=== PATIENT | male | born 1945 | race Caucasian/White ===

== ENCOUNTER → 2017-01-13 | Outpatient (CLI) | payer OTHER ==
[~2017-01-13] MED LIST: HYDR-3533 PO; IBUP800T23 PO; METH500T3 PO; METH750T2 PO
[2017-01-13 08:11] LABS: ALKALINE PHOSPHATASE 144 U/L (45-117); ALT (GPT) 36 U/L (12-78); ANION GAP 6 MEQ/L (5-15); AST (GOT) 24 U/L (15-37); BICARBONATE 29.9 MEQ/L (21.0-32.0); BLOOD UREA NITROGEN 18 MG/DL (7-18); CHLORIDE 103 MEQ/L (98-107); GLOMERULAR FILTRATION RATE 59 ML/MIN (>89); GLUCOSE,FASTING 88 MG/DL (74-99); SODIUM (NA) 139 MEQ/L (136-145); TOTAL BILIRUBIN ADULT 0.6 MG/DL (0.2-1.0)
[2017-01-13 08:17] LABS: POTASSIUM 4.6 MEQ/L (3.5-5.1)
[2017-01-13 16:49] LABS: HEMOGLOBIN A1a 1.1 %; HEMOGLOBIN A1b 1.1 %; HEMOGLOBIN Ao 84.2 %; HEMOGLOBIN F 0.9 %; HEMOGLOBIN LA1C 1.8 %; HEMOGLOBIN P3 3.9 %
== END ==
LOC: CLAB 07:09
PROVIDERS: ATTEND Nurse Practitioner Family
DX: R97.8 Other abnormal tumor markers (principal); R73.01 Impaired fasting glucose
CPT/HCPCS: 36415; 80053; 83036; 84153

== ENCOUNTER → 2017-01-15 | Outpatient (CLI) | payer OTHER | LOC: CLAB 15:46 | PROVIDERS: ATTEND Orthopaedic Surgery | DX: M10.471 Other secondary gout, right ankle and foot (principal) | CPT/HCPCS: 36415; 84550 ==

== ENCOUNTER → 2017-07-15 | Outpatient (CLI) | payer OTHER ==
[2017-07-15 07:36] LABS: ALT (GPT) 29 U/L (12-78); ANION GAP 8 MEQ/L (5-15); AST (GOT) 20 U/L (15-37); BICARBONATE 28.2 MEQ/L (21.0-32.0); BLOOD UREA NITROGEN 20 MG/DL (7-18); CHLORIDE 106 MEQ/L (98-107); GLOMERULAR FILTRATION RATE 63 ML/MIN (>89); GLUCOSE,FASTING 91 MG/DL (74-99); SODIUM (NA) 142 MEQ/L (136-145); URIC ACID 7.3 MG/DL (2.6-7.2)
[2017-07-15 07:45] LABS: ALKALINE PHOSPHATASE 118 U/L (45-117); FREE T3 3.14 PG/ML (2.18-3.98); TOTAL BILIRUBIN ADULT 0.4 MG/DL (0.2-1.0)
[2017-07-15 17:58] LABS: HEMOGLOBIN A1a 1.1 %; HEMOGLOBIN A1b 1.1 %; HEMOGLOBIN Ao 83.8 %; HEMOGLOBIN LA1C 1.9 %; HEMOGLOBIN P3 4.1 %
== END ==
LOC: CLAB 06:46
PROVIDERS: ATTEND Nurse Practitioner Family
DX: R73.01 Impaired fasting glucose (principal); R97.8 Other abnormal tumor markers; R79.89 Other specified abnormal findings of blood chemistry; Z51.81 Encounter for therapeutic drug level monitoring; M10.9 Gout, unspecified
CPT/HCPCS: 36415; 80053; 83036; 84153; 84439; 84443; 84481; 84550

== ENCOUNTER 2017-11-07 08:54 | Emergency (ER) | payer OTHER ==
[~2017-11-07] VITALS: Ht 177.8 cm; Wt 75.0 kg
[~2017-11-07 08:54] MED LIST changes: +HYDR-3366 PO; +IBUP200C PO
[2017-11-07 08:57] VITALS: BP 174/87; PULSE 73; RESP 18; TEMP 98; O2SAT 100
[2017-11-07] MEDS ORDERED: KETOROLAC TROMETHAMINE 60 MG/2 ML (IM) VIAL IM ONE (09:45)
--- NOTE | 2017-11-07 10:29 | PD ---
HPI Chief Complaint: Back/ Neck Pain or Injury Time Seen by Provider: 09:17 Travel History International Travel<30 days: No Contact w/Intl Traveler<30days: No Traveled to known affect area: No History of Present Illness HPI This is a 72-year-old male who presents to the emergency department with low back pain radiating down to his right calf, intermittent, worse in the morning improved after he walks around some associated with some tingling in the leg. He has had pain like this in the past but not for over a year. He denies any urinary or bowel incontinence and denies any fevers or chills. He has no symptoms in the left leg. PFSH Past Medical History Hx Anticoagulant Therapy: No Cancer: No Cardiovascular Problems: No Chemotherapy: No Cerebrovascular Accident: No Diabetes: No Diminished Hearing: No Endocrine: No Glaucoma: No Headaches: Yes Hepatitis: No Hiatal Hernia: No Hypertension: No Immune Disorder: No Inguinal Hernia: Yes (RIGHT SIDE REPAIRED) Musculoskeletal: Yes (SCIATICA) Neurologic: No Respiratory: No Thyroid Disease: No PNEUMOCCOCAL Vaccine (Year): 2008 Past Surgical History Abdominal Surgery: Yes Appendectomy: Yes Genitourinary Surgery: Yes Oral Surgery: Yes Pacemaker: No Other Surgery: Yes (INGUINAL HERNIA REPAIR, URO SURGERY, FACIAL SURGERY) Social History Alcohol Use: No Tobacco Use: No Substance Use: No Allergies-Medications (Allergen,Severity, Reaction): Coded Allergies: No Known Allergies (Verified Adverse Reaction, Unknown, 11/07/17) Reported Meds & Prescriptions Reported Meds & Active Scripts Active No Active Prescriptions or Reported Medications Review of Systems Except as stated in HPI: all other systems reviewed are Neg Physical Exam Narrative GENERAL:Well appearing, no acute distress SKIN: Focused skin assessment warm and dry. HEAD: Atraumatic. Normocephalic. EYES: Pupils equal and round. No injection or drainage. ENT: Moist mucous membranes NECK: Trachea midline. CARDIOVASCULAR: Regular rate and rhythm. No murmur appreciated. 2+ bilateral DP pulses with normal capillary refill. RESPIRATORY: Clear to auscultation. Breath sounds equal bilaterally. GASTROINTESTINAL: Abdomen soft, non-tender, nondistended. MUSCULOSKELETAL: Tender to palpation over the upper lumbar vertebral bodies with pain with ipsilateral straight leg raise. NEUROLOGICAL: Awake and alert. No obvious cranial nerve deficits. Moving all extremities. 5 out of 5 strength in the bilateral lower extremities. Sensation is grossly intact in both lower extremities. PSYCHIATRIC: Appropriate mood and affect; insight and judgment normal. Data Data Last Documented VS Vital Signs Date Time Temp Pulse Resp B/P (MAP) Pulse Ox O2 Delivery O2 Flow Rate FiO2 11/07/17 10:55 54 14 150/77 (101) 98 Room Air 11/07/17 08:57 98.0 Orders Orders Spine, Lumbar - Ltd (Ap & Lat) (11/07/17 ) Ketorolac Inj (Toradol Inj) (11/07/17 09:45) MDM Medical Decision Making Medical Screen Exam Complete: Yes Emergency Medical Condition: Yes Interpretation(s) Afebrile, no tachycardia, hypertensive X-ray: Osteopenia with no compression fracture Differential Diagnosis Compression fracture, herniated disc, sciatica, cauda equina syndrome Narrative Course This is a 72-year-old male who presents to the emergency department with radicular pain starting in his low back extending down to his calf. He has a normal neurovascular symptoms with no red flags for cauda equina syndrome. Patient was given an injection of Toradol here in the emergency department. He will be discharged with prednisone and tramadol and will be excused from work for several days in order to recover. He was advised this may take 6-8 weeks to recover and he was advised to follow-up with his doctor in 1-2 weeks if he is not improving for potential physical therapy or further imaging. Diagnosis Primary Impression: Lumbosacral radiculopathy Patient Instructions: General Instructions Additional Instructions: If you develop weakness of your legs, difficulty walking, numbness of your legs or your genital or rectal area, loss of your bowel or bladder, or difficulty urinating return to the emergency department immediately. Followup with your primary care physician in one week if your symptoms have not improved. Med/Other Pt SpecificInfo: Prescription(s) given Scripts Ranitidine (Ranitidine) 150 Mg Tab 150 MG PO BID for Heartburn Management, #60 TAB 0 Refills Prov: Adelaida Snowden MD 11/07/17 Prednisone (48) 10 mg tab Dose Pack (Prednisone (48) 10 mg tab Dose Pack) 10 Mg Dspk 10 MG PO DIRECTED for Inflammation, #1 DSPK 0 Refills Prov: Adelaida Snowden MD 11/07/17 Tramadol (Tramadol) 50 Mg Tab 50 MG PO Q6H Y for PAIN, #12 TAB 0 Refills Prov: Adelaida Snowden MD 11/07/17 Disposition: 01 DISCHARGE HOME Condition: Stable Adelaida Snowden MD Nov 07, 2017 10:29
--- NOTE | 2017-11-07 10:47 | RADRPT ---
EXAM DATE/TIME: 11/07/2017 09:51 [facility] COMPARISON: SPINE LUMBAR LTD (AP & LAT), December 24, 2014, 7:58. INDICATIONS : Low back pain radiating into left leg. MEDICAL HISTORY : None. SURGICAL HISTORY : None. ENCOUNTER: Initial ACUITY: 2 days PAIN SCORE: 10/10 LOCATION: Left lumbar spine. FINDINGS: Two view examination was performed. There are five non-rib bearing vertebral bodies. The vertebral bodies are in normal alignment without evidence of subluxation or scoliosis. The disc spaces are bee ntained. The pedicles are intact. Osteopenia. Minimal degenerative changes. No fracture is identifi ed. CONCLUSION: 1. Minimal degenerative changes and osteopenia. Asad Babin MD on November 07, 2017 at 10:44 Board Certified Radiologist. This report was verified electronically.
[2017-11-07 10:55] VITALS: BP 150/77; PULSE 54; RESP 14; O2SAT 98
[2017-11-07] MEDS ORDERED: PRED10PA2 PO (11:06)
[2017-11-07] MEDS ORDERED: RANI150T PO (11:06)
[2017-11-07] MEDS ORDERED: TRAM50TA PO (11:06)
== END 2017-11-07 11:26 | disposition home or self-care (01) ==
LOC: NEPD 08:54
DX: M54.17 Radiculopathy, lumbosacral region (principal)
CPT/HCPCS: 72100; 96372; 99283; J1885

== ENCOUNTER 2017-12-14 15:56 | Emergency (ER) | payer OTHER ==
[~2017-12-14] VITALS: Ht 175.3 cm; Wt 75.0 kg
[~2017-12-14 15:56] MED LIST changes: -HYDR-3533 PO; -IBUP800T23 PO; -METH500T3 PO; -METH750T2 PO; +PRED10PA2 PO; +RANI150T PO; +TRAM50TA PO
[2017-12-14 15:59] VITALS: BP 185/92; PULSE 87; RESP 16; TEMP 98.5; O2SAT 100
[2017-12-14] MEDS ORDERED: PRED20 PO (20:00)
[2017-12-14] MEDS ORDERED: DEXAMETHASONE SOD PHOS 4 MG/ML VIAL IM ONE (20:00)
[2017-12-14] MEDS ORDERED: KETOROLAC TROMETHAMINE 60 MG/2 ML (IM) VIAL IM ONE (20:00)
[2017-12-14] MEDS ORDERED: ZANT300T PO (20:00)
[2017-12-14] MEDS ORDERED: NORC5TAB PO (20:00)
--- NOTE | 2017-12-14 20:00 | PD ---
HPI Chief Complaint: Back/ Neck Pain or Injury Time Seen by Provider: 19:40 Travel History International Travel<30 days: No Contact w/Intl Traveler<30days: No Traveled to known affect area: No History of Present Illness HPI 72-year-old male complains of low back pain and right leg pain. Patient states that the pain started a month and a half ago. Patient was seen in the emergency room a month ago. Lumbar spine x-ray shows DJD changes. Patient was given Toradol IM injection and discharged with prescription for prednisone, Zantac, tramadol. Patient was seen by personal physician Dr. Tafoya recently. Patient had MRI done 2 weeks ago outpatient which showed DJD changes and disc disease. Patient was given prescription for tramadol for pain. Patient states that the pain got worse for the past several days. Patient states that the pain sharp pain shooting pain started in the low back with radiation to the posterior aspect of the right leg. Patient denies any focal weakness or numbness of the extremity. Patient denies any bladder or bowel incontinence. Patient denies any fever chills. Patient denies any focal weakness or numbness of the extremity. PFSH Past Medical History Hx Anticoagulant Therapy: No Cancer: No Cardiovascular Problems: No Chemotherapy: No Cerebrovascular Accident: No Diabetes: No Diminished Hearing: No Endocrine: No Glaucoma: No Headaches: Yes Hepatitis: No Hiatal Hernia: No Hypertension: No Immune Disorder: No Inguinal Hernia: Yes (RIGHT SIDE REPAIRED) Musculoskeletal: Yes (SCIATICA) Neurologic: No Respiratory: No Thyroid Disease: No PNEUMOCCOCAL Vaccine (Year): 2008 Past Surgical History Abdominal Surgery: Yes Appendectomy: Yes Genitourinary Surgery: Yes Oral Surgery: Yes Pacemaker: No Other Surgery: Yes (INGUINAL HERNIA REPAIR, URO SURGERY, FACIAL SURGERY) Social History Alcohol Use: No Tobacco Use: No Substance Use: No Allergies-Medications (Allergen,Severity, Reaction): Coded Allergies: No Known Allergies (Verified Adverse Reaction, Unknown, 11/07/17) Reported Meds & Prescriptions Reported Meds & Active Scripts Active Ranitidine (Ranitidine HCl) 150 Mg Tab 150 Mg PO BID Prednisone (48) 10 mg tab Dose Pack (Prednisone) 10 Mg Dspk 10 Mg PO DIRECTED Tramadol (Tramadol HCl) 50 Mg Tab 50 Mg PO Q6H PRN [place] (Hydrocodone-Acetaminophen) 10-325 Mg Tab 1 Tab PO Q6H PRN Reported Ibuprofen 200 Mg Cap 200 Mg PO Q6H PRN Review of Systems General / Constitutional: No: Fever Eyes: No: Visual changes HENT: No: Headaches Cardiovascular: No: Chest Pain or Discomfort Respiratory: No: Shortness of Breath Gastrointestinal: No: Abdominal Pain Genitourinary: No: Dysuria Musculoskeletal: Positive: Pain Skin: No Rash Neurologic: No: Weakness Psychiatric: No: Depression Endocrine: No: Polydipsia Hematologic/Lymphatic: No: Easy Bruising Physical Exam Narrative GENERAL: Well-nourished, well-developed patient. SKIN: Focused skin assessment warm/dry. HEAD: Normocephalic. EYES: No scleral icterus. No injection or drainage. NECK: Supple, trachea midline. No JVD or lymphadenopathy. CARDIOVASCULAR: Regular rate and rhythm without murmurs, gallops, or rubs. RESPIRATORY: Breath sounds equal bilaterally. No accessory muscle use. GASTROINTESTINAL: Abdomen soft, non-tender, nondistended. MUSCULOSKELETAL: Patient has positive straight leg raising right leg. BACK: Moderate tenderness on palpation mid to low lumbar area, without obvious deformity. No CVA tenderness. Neurologic exam: Patient awake and alert oriented 3. Patient moves all extremity well. No obvious focal neurologic deficit. Data Data Last Documented VS Vital Signs Date Time Temp Pulse Resp B/P (MAP) Pulse Ox O2 Delivery O2 Flow Rate FiO2 12/14/17 15:59 98.5 87 16 185/92 (123) 100 Orders Orders Dexamethasone Inj (Decadron Inj) (12/14/17 20:00) Ketorolac Inj (Toradol Inj) (12/14/17 20:00) MDM Medical Decision Making Medical Screen Exam Complete: Yes Emergency Medical Condition: Yes Differential Diagnosis Differential diagnosis includes sciatica, radiculopathy, HNP. Narrative Course 72-year-old male with low back pain with radiation to right leg. Typical of sciatica. Decadron 8 mg IM. Toradol 30 mg IM. Diagnosis Primary Impression: Right sided sciatica Patient Instructions: General Instructions Additional Instructions: Take medications as directed. Follow-up with orthopedist. Return if worse. Patient off work for next 2 days. Light duty for 2 weeks. Med/Other Pt SpecificInfo: Prescription(s) given Scripts Hydrocodone-Acetaminophen ([place]) 5 Mg-325 Mg Tab 1 TAB PO Q6H Y for PAIN, #20 TAB 0 Refills Prov: Jose Angel Foster MD 12/14/17 Prednisone (Prednisone) 20 Mg Tab 20 MG PO BID, #20 TAB 0 Refills Prov: Jose Angel Foster MD 12/14/17 Ranitidine (Zantac) 300 Mg Tab 300 MG PO DAILY, #30 TAB 0 Refills Prov: Jose Angel Foster MD 12/14/17 Disposition: 01 DISCHARGE HOME Condition: Stable Jose Angel Foster MD Dec 14, 2017 20:00
[2017-12-14 20:04] VITALS: BP 172/87; PULSE 67; RESP 18; O2SAT 98
== END 2017-12-14 20:36 | disposition home or self-care (01) ==
LOC: NEPD 15:56
DX: M54.41 Lumbago with sciatica, right side (principal)
CPT/HCPCS: 96372; 99283; J1100; J1885

== ENCOUNTER 2018-03-05 06:35 | Emergency (ER) | payer OTHER ==
[~2018-03-05] VITALS: Ht 175.3 cm; Wt 78.0 kg
[~2018-03-05 06:35] MED LIST changes: +NORC5TAB PO; +PRED20 PO; +ZANT300T PO
[2018-03-05 06:38] VITALS: BP 148/85; PULSE 69; RESP 16; TEMP 97.6; O2SAT 98
[2018-03-05] MEDS ORDERED: PENI500T PO (06:50)
--- NOTE | 2018-03-05 06:50 | PD ---
HPI Chief Complaint: Oral / Dental Pain or Problem Time Seen by Provider: 06:47 Travel History International Travel<30 days: No Contact w/Intl Traveler<30days: No Traveled to known affect area: No History of Present Illness HPI Patient is a 72-year-old male presenting to the emergency department for evaluation of erythema to his gums over the upper central incisors. Patient states he noticed it a week ago, he denies any pain, drainage, toothache. Patient states he does not have a dentist. He has no other complaints at this time. Symptom onset was gradual, symptoms are mild in nature. Patient's vital signs are stable, he denies any significant past medical history. PFSH Past Medical History Medical History: Denies Significant Hx Hx Anticoagulant Therapy: No Headaches: Yes Inguinal Hernia: Yes (RIGHT SIDE REPAIRED) Musculoskeletal: Yes (SCIATICA) Tetanus Vaccination: Unknown Influenza Vaccination: Yes PNEUMOCCOCAL Vaccine (Year): 2008 Past Surgical History Abdominal Surgery: Yes Appendectomy: Yes Genitourinary Surgery: Yes Oral Surgery: Yes Pacemaker: No Other Surgery: Yes (INGUINAL HERNIA REPAIR, URO SURGERY, FACIAL SURGERY) Social History Alcohol Use: No Tobacco Use: No Substance Use: No Allergies-Medications (Allergen,Severity, Reaction): Coded Allergies: No Known Allergies (Verified Adverse Reaction, Unknown, 11/07/17) Reported Meds & Prescriptions Reported Meds & Active Scripts Active Penicillin V Potassium 500 Mg Tab 500 Mg PO Q8H 7 Days [place] (Hydrocodone-Acetaminophen) 5 Mg-325 Mg Tab 1 Tab PO Q6H PRN Prednisone 20 Mg Tab 20 Mg PO BID Zantac (Ranitidine HCl) 300 Mg Tab 300 Mg PO DAILY Ranitidine (Ranitidine HCl) 150 Mg Tab 150 Mg PO BID Prednisone (48) 10 mg tab Dose Pack (Prednisone) 10 Mg Dspk 10 Mg PO DIRECTED Tramadol (Tramadol HCl) 50 Mg Tab 50 Mg PO Q6H PRN [place] (Hydrocodone-Acetaminophen) 10-325 Mg Tab 1 Tab PO Q6H PRN Reported Ibuprofen 200 Mg Cap 200 Mg PO Q6H PRN Review of Systems Except as stated in HPI: all other systems reviewed are Neg HENT: Positive: Dental Difficulties Physical Exam Narrative GENERAL: Well-developed, well-nourished, well-appearing male. Presenting in no acute distress. MOUTH: Mucous membranes moist, no lesions, tongue appears normal. Gums over the upper central incisors appear mildly erythematous and edematous. No fluctuance or dental caries noted. SKIN: Warm and dry. HEAD: Normocephalic. EYES: No scleral icterus. No injection or drainage. NECK: Supple, trachea midline. No JVD or lymphadenopathy. CARDIOVASCULAR: Regular rate and rhythm without murmurs, gallops, or rubs. RESPIRATORY: Breath sounds equal bilaterally. No accessory muscle use. GASTROINTESTINAL: Abdomen soft, non-tender, nondistended. MUSCULOSKELETAL: No cyanosis, or edema. BACK: Nontender without obvious deformity. No CVA tenderness. Data Data Last Documented VS Vital Signs Date Time Temp Pulse Resp B/P (MAP) Pulse Ox O2 Delivery O2 Flow Rate FiO2 03/05/18 06:38 97.6 69 16 148/85 (106) 98 Orders Orders Ed Discharge Order (03/05/18 06:50) MDM Medical Decision Making Medical Screen Exam Complete: Yes Emergency Medical Condition: Yes Interpretation(s) Vital Signs Date Time Temp Pulse Resp B/P (MAP) Pulse Ox O2 Delivery O2 Flow Rate FiO2 03/05/18 06:38 97.6 69 16 148/85 (106) 98 Differential Diagnosis Abscess versus gingivitis versus dental caries versus other Narrative Course Patient is a 72-year-old male presenting with 1 week of gingival edema. Patient 's vital signs are stable. There is no sign of abscess. Patient was given a prescription for Pen-Vee K. He was encouraged to follow-up with a dentist. He was given a list of local dental clinics in which to follow-up with. He was encouraged to brush teeth regularly. He is encouraged return to emergency department for any new or worsening symptoms. Patient verbalized understanding. Patient stable for discharge Diagnosis Primary Impression: Gingival erythema Referrals: Dentist 2 days Patient Instructions: General Instructions, Gingivitis (ED) Additional Instructions: Follow-up with a dentist [place] your teeth regularly Take medications as directed Return to emergency department for any new or worsening symptoms Med/Other Pt SpecificInfo: Prescription(s) given Scripts Penicillin V Potassium (Penicillin V Potassium) 500 Mg Tab 500 MG PO Q8H for Infection for 7 Days, #21 TAB 0 Refills Prov: Marisabel Campos 03/05/18 Disposition: 01 DISCHARGE HOME Condition: Stable Marisabel Campos March 05, 2018 06:50
== END 2018-03-05 07:03 | disposition home or self-care (01) ==
LOC: NEPD 06:35
DX: K06.8 Other specified disorders of gingiva and edentulous alveolar ridge (principal)
CPT/HCPCS: 99283

== ENCOUNTER 2018-04-10 22:19 | Observation (INO) ==
[2018-04-10] MEDS ORDERED: Sodium Chlor 0.9% Inj 500 ML IV.SIG ONE (23:00)
--- NOTE | 2018-04-10 23:40 | XR ---
EXAM DATE: 04/10/2018 11:20 PM EDT AGE/SEX: 72 years / Male INDICATIONS: Weakness, cough. CLINICAL DATA: This is the patient's initial encounter. Patient reports that signs and symptoms have been present for 2 days and indicates a pain score of 0/10. MEDICAL/SURGICAL HISTORY: None. None. COMPARISON: No prior exams available for comparison. FINDINGS: Single AP view of the chest. Lungs are clear. Cardiomediastinal silhouette within normal limits. No e vidence of pleural effusion or pneumothorax. CONCLUSION: No acute cardiopulmonary disease identified. Electronically signed by: Tyrone Nuñez MD 04/10/2018 11:39 PM EDT
[2018-04-10 23:48] LABS: Baso # (Auto) 0.1 th/mm3 (0.0-0.2); Eos % (Auto) 0.6 % (0.0-4.0); Hematocrit 42.6 % (39.0-51.0); Hemoglobin 14.2 gm/dL (13.0-17.0); Lymph # (Auto) 1.4 th/mm3 (1.0-4.8); Lymph % (Auto) 19.4 % (9.0-44.0); Mean Corpuscular HGB Conc 33.3 % (32.0-36.0); Mean Corpuscular Hemoglobin 30.9 pg (27.0-34.0); Mean Corpuscular Volume 92.8 fL (80.0-100.0); Mean Platelet Volume 7.7 fL (7.0-11.0); Mono # (Auto) 0.6 th/mm3 (0.0-0.9); Mono % (Auto) 8.6 % (0.0-8.0); Neut # (Auto) 5.3 th/mm3 (1.8-7.7); Neut % (Auto) 70.4 % (16.0-70.0); Platelet Count 271 th/mm3 (150-450); Red Blood Count 4.59 mil/mm3 (4.50-5.90); Red Cell Distribution Width 12.6 % (11.6-17.2); White Blood Count 7.4 th/mm3 (4.0-11.0)
[2018-04-11 00:05] LABS: Chloride 107 meq/L (98-107); Sodium 141 meq/L (136-145)
[2018-04-11 00:08] LABS: Calcium 8.6 mg/dL (8.5-10.1)
[2018-04-11 00:09] LABS: Albumin 3.6 g/dL (3.4-5.0); Anion Gap 9 meq/L (5-15); Blood Urea Nitrogen 26 mg/dL (7-18); Carbon Dioxide 24.6 meq/L (21.0-32.0); Glucose,Random 110 mg/dL (74-106)
[2018-04-11 00:10] LABS: Activated Partial Thrombo Time 26.5 sec (24.3-30.1); INR 1.1 Ratio; Prothrombin Time 10.7 sec (9.8-11.6)
[2018-04-11 00:12] LABS: Alanine Aminotransferase 32 U/L (12-78); Aspartate Aminotransferase 24 U/L (15-37); Glomerular Filtration Rate 66 mL/min (>89)
[2018-04-11 00:15] LABS: Alkaline Phosphatase 112 U/L (45-117); Creatine Kinase 266 U/L (39-308)
[2018-04-11 00:29] LABS: Creatine Kinase MB 5.3 ng/mL (0.5-3.6)
--- NOTE | 2018-04-11 00:45 | ED ---
HPI General Chief complaint: Weakness Stated complaint: Weakness Time Seen by Provider: 04/10/18 22:53 Source: patient Mode of arrival: ambulatory Limitations: no limitations History of Present Illness HPI narrative: Patient is a 72 year old male who comes in complaining of several near syncopal episodes. He says that over the past two days, he has had about 5 episodes, 3 today. He says he gets very sweaty and feels like he is going to pass out. Each time, he has to sit down. He says he has been getting a headache on and off. He denies chest pain or SOB. He denies blurred vision, nausea or vomiting. Nothing seems to improve or worsen his symptoms. Severity is mild to moderate. Treatments prior to arrival: none Related Data Home Medications Medication Instructions Recorded Confirmed No Known Home Medications 04/10/18 04/10/18 Allergies Allergy/AdvReac Type Severity Reaction Status Date / Time No Known Allergies AdvReac Unknown Abdominal Uncoded 04/10/18 23:54 Pain Review of Systems Except as stated in HPI: all other systems reviewed are negative Constitutional Denies chills, Denies fever(s) and Reports headache(s) Eyes Denies blurry vision ENT Reports dizziness Cardiovascular Denies chest pain and Denies dyspnea Gastrointestinal Denies nausea and Denies vomiting Musculoskeletal Denies myalgias and Denies arthralgias Neurologic Denies focal weakness [facility] Medical History Medical History Inguinal hernia (Acute) Patient denies medical problems (Acute) Social History Social History Substance History: No History of Abuse Second Hand Smoke Exposure: No Smoking Status: Never smoker How Often Do You Have a Drink Containing Alcohol: Never Recent Travel in [facility] within the Last 8 Weeks: No Recent Out of Country Travel within the Last 8 Weeks: No Immunization History Tetanus Immunization: Unsure Hx Influenza Vaccine This Season: Yes Exam Narrative Exam Narrative: GENERAL: Awake and alert, in no acute distress. SKIN: Focused skin assessment warm/dry. No wounds or signs of infection. HEAD: Atraumatic. Normocephalic. EYES: Pupils equal and round and reactive. No scleral icterus. EOMI. ENT: Mucous membranes pink and moist. NECK: Trachea midline. No JVD. CARDIOVASCULAR: Regular rate and rhythm. No murmur appreciated. RESPIRATORY: No accessory muscle use. Clear to auscultation. Breath sounds equal bilaterally. GASTROINTESTINAL: Abdomen soft, non-tender, nondistended. MUSCULOSKELETAL: No obvious deformities. No clubbing. No cyanosis. No edema. NEUROLOGICAL: Awake and alert. No obvious cranial nerve deficits. Motor grossly within normal limits. Normal speech. PSYCHIATRIC: Appropriate mood and affect; insight and judgment normal. Course Hospital Course: IV established, labs sent CT head and CXR ordered. Given IVF, Meclizine. Reevaluation(s) Reevaluation #1: Patient is feeling better after IVF. He is concerned that he has had multiple episodes of near syncope. He is agreeable for an observation stay. Time: 00:39 Initial Documented Vital Signs Temperature 98.1 F 04/10/18 22:43 Pulse Rate 76 04/10/18 22:43 Respiratory Rate 20 04/10/18 22:43 Blood Pressure 154/84 H 04/10/18 22:43 Pulse Oximetry 97 04/10/18 22:43 Last Documented Vital Signs Temperature 98.1 F 04/10/18 22:49 Pulse Rate 66 04/10/18 23:56 Respiratory Rate 16 04/10/18 23:56 Blood Pressure 128/72 04/10/18 23:56 Pulse Oximetry 96 04/10/18 23:56 Medical Decision Making MDM Narrative Medical decision making narrative: Patient is a 72-year-old male who comes in complaining of several near syncopal episodes. Exam shows no neurologic abnormalities. IV established, labs sent. Labs show evidence of dehydration with an elevated BUN of 26 and a creatinine of 1.1. Patient given IV fluids, meclizine. He says his headache improved after treatment. Patient will be placed in observation for syncopal workup. Differential Diagnosis Differential Diagnosis: Dehydration versus electrolyte abnormality versus ACS versus dysrhythmia Medical Records Medical records reviewed: Yes I reviewed the patient's medical records. Lab Data Lab results reviewed: Yes I reviewed the patient's lab results. Result diagrams: 04/10/18 23:20 04/10/18 23:20 Lab Results 04/10/18 04/10/18 04/10/18 Range/Units 23:20 23:20 23:20 CBC w Diff Auto diff final WBC 7.4 (4.0-11.0) th/mm3 RBC 4.59 (4.50-5.90) mil/mm3 Hgb 14.2 (13.0-17.0) gm/dL Hct 42.6 (39.0-51.0) % MCV 92.8 (80.0-100.0) fL MCH 30.9 (27.0-34.0) pg MCHC 33.3 (32.0-36.0) % RDW 12.6 (11.6-17.2) % Plt Count 271 (150-450) th/mm3 MPV 7.7 (7.0-11.0) fL Neut % (Auto) 70.4 H (16.0-70.0) % Lymph % (Auto) 19.4 (9.0-44.0) % [place] % (Auto) 8.6 H (0.0-8.0) % Eos % (Auto) 0.6 (0.0-4.0) % Baso % (Auto) 1.0 (0.0-2.0) % Neut # (Auto) 5.3 (1.8-7.7) th/mm3 Lymph # (Auto) 1.4 (1.0-4.8) th/mm3 [place] # (Auto) 0.6 (0.0-0.9) th/mm3 Eos # (Auto) 0.0 (0.0-0.4) th/mm3 Baso # (Auto) 0.1 (0.0-0.2) th/mm3 WBC Differential . Differential Comment . PT 10.7 (9.8-11.6) sec INR 1.1 Ratio APTT 26.5 (24.3-30.1) sec Sodium 141 (136-145) meq/L Potassium 4.0 (3.5-5.1) meq/L Chloride 107 (98-107) meq/L Carbon Dioxide 24.6 (21.0-32.0) meq/L Anion Gap 9 (5-15) meq/L BUN 26 H (7-18) mg/dL Creatinine 1.10 (0.60-1.30) mg/dL Estimated GFR 66 L (>89) mL/min Random Glucose 110 H (74-106) mg/dL Calcium 8.6 (8.5-10.1) mg/dL Total Bilirubin 0.3 (0.2-1.0) mg/dL AST 24 (15-37) U/L ALT 32 (12-78) U/L Alkaline Phosphatase 112 (45-117) U/L Total Creatine Kinase 266 (39-308) U/L CK-MB (CK-2) 5.3 H (0.5-3.6) ng/mL Troponin I Less than 0.02 L (0.02-0.05) ng/mL Total Protein 7.0 (6.4-8.2) g/dL Albumin 3.6 (3.4-5.0) g/dL Imaging Data Radiologist's impression: ITS Impressions Chest X-Ray 04/10/18 23:02 CONCLUSION: No acute cardiopulmonary disease identified. ECG Data EKG Prior to Arrival: No Attestation: I personally reviewed and interpreted this ECG as follows: Interpretation: ECG shows normal sinus rhythm at a rate of 76, no ST elevation or depression, normal intervals. Discharge Plan Discharge Disposition Patient Disposition: 30 Still Patient Discharge Details Discharge Problem: Near syncope Physicians Team ED Provider: Sirena Calvillo Primary Care Provider: Isidoro Tafoya Attending Provider: Klaudia Stratton Discharge Interventions Interventions: Vital Signs Last Done: 04/10/18 23:56 Status ED Status: Admitted Observation Patient
--- NOTE | 2018-04-11 00:54 | CT ---
EXAM DATE: 04/10/2018 11:47 PM EDT AGE/SEX: 72 years / Male INDICATIONS: Dizziness. CLINICAL DATA: This is the patient's initial encounter. Patient reports that signs and symptoms have been present for 1 day and indicates a pain score of 0/10. MEDICAL/SURGICAL HISTORY: None. None. RADIATION DOSE: 62.10 CTDI (mGy) COMPARISON: No prior exams available for comparison. TECHNIQUE: CT of the head without contrast. Using automated exposure control and adjustment of the mA and/or kV according to patient size, radiation dose was kept as low as reasonably achievable to ob tain optimal diagnostic quality images. DICOM format image data is available electronically for revi ew and comparison. FINDINGS: Cerebrum: The ventricles are normal for age. No evidence of midline shift, mass lesion, hemorrhage or acute infarction. No extraaxial fluid collections are seen. Bilateral periventricular white matte r hypodensity likely representing chronic small vessel ischemic change. Posterior Fossa: The cerebellum and brainstem are intact. The 4th ventricle is midline. The cerebe llopontine angle is unremarkable. Extracranial: The visualized portion of the orbits is intact. Skull: The calvaria is intact. No evidence of skull fracture. CONCLUSION: 1. No acute intracranial findings identified. 2. Symmetric periventricular white matter hypodensity likely representing chronic small vessel ische riley change. Electronically signed by: Tyrone Nñuez MD 04/11/2018 12:52 AM EDT
[2018-04-11] MEDS ORDERED: Sod Chloride 0.9% Inj 1,000 ML IV.CONT SCH (01:00)
--- NOTE | 2018-04-11 07:46 | US ---
EXAM DATE: 04/11/2018 7:32 AM EDT AGE/SEX: 72 years / Male INDICATIONS: Syncope. CLINICAL DATA: This is the patient's initial encounter. Patient reports that signs and symptoms have been present for 2 days and indicates a pain score of 3/10. MEDICAL/SURGICAL HISTORY: . Inguinal hernia. None. COMPARISON: No prior exams available for comparison. VELOCITY PARAMETERS: ICA/CCA Ratio: Right 0.7 , Left 1.0 ICA: Right 73 cm/sec, Left 87 cm/sec CCA: Right 103 cm/sec, Left 89 cm/sec ECA: Right 102 cm/sec, Left 102 cm/sec Vertebral: Right 32 cm/sec antegrade, Left 37 cm/sec antegrade FINDINGS: Right Carotid: No significant plaque is visualized.The waveforms are within normal limits. Left Carotid: No significant plaque is visualized. The waveforms are within normal limits. Other: None. CONCLUSION: No hemodynamically significant stenosis in either carotid artery Electronically signed by: Asad Babin MD 04/11/2018 7:44 AM EDT
[2018-04-11 08:44] LABS: Potassium 3.9 meq/L (3.5-5.1)
[2018-04-11 08:46] LABS: Calcium 8.3 mg/dL (8.5-10.1)
[2018-04-11 08:47] LABS: Carbon Dioxide 25.6 meq/L (21.0-32.0)
--- NOTE | 2018-04-11 10:24 | ECG ---
Date Performed: 04/10/2018 Time Performed: 22:32:48 PTAGE: 72 years EKG: Sinus rhythm BORDERLINE LEFT AXIS DEVIATION BORDERLINE ECG PREVIOUS TRACING : 04/22/2013 09.51 No significant change from previous tracing noted. DOCTOR: Franki Watkins Interpretating Date/Time 04/11/2018 10:23:10
--- NOTE | 2018-04-11 11:47 | P.HP ---
History of Present Illness Primary Care Physician: Isidoro Tafoya MD Chief Complaint: Near syncope History of Present Illness: 72-year-old male with no chronic medical illnesses who presented to the hospital because lightheadedness, dizziness, near syncope. Patient states that he was normal state of health until approximately 2 days ago he started developing lightheadedness and dizziness where he felt as if he may pass out. This happened multiple times during the day yesterday and the day before. Because of those reasons he came to emergency department for evaluation. The patient indicates that he had had this same symptoms a couple years ago when he went to visit his family in [facility]. The patient was at work yesterday whenever he was working and the symptoms mainly happen whenever he goes from a sitting to standing, working while bending over. He did get lightheaded, dizzy and feel his face gets flushed. He did not have any episodes of syncope, denies any chest pain, shortness of breath, abdominal pain, nausea, vomiting. Upon workup emergency department does appears patient does have prerenal azotemia, possible some mild dehydration. Vital signs did indicate orthostasis. CT scan of the head was unremarkable, EKG showed sinus rhythm, it was recommended by the ER physician that the patient be observed in the hospital for further evaluation and management. - Diagnosis (1) Near syncope Inpatient Certification: I certify that the inpatient services were ordered in accordance with Medicare regulations governing the order. This includes certification that hospital inpatient services are reasonable and necessary and in the case of services not specified as inpatient-only under 42 CFR 419.22(n), that they are appropriately provided as inpatient services in accordance to with the 2-midnight benchmark under 43 CFR 412.3(e) Review of Systems All other systems reviewed negative except as stated in HPI Neurologic: Reports dizziness, Reports weakness PMFSH - History History Provided By: Patient - Medical History Medical History: Medical History (Last Updated 04/11/18 @ 11:28 by ROLLY Lock) Patient denies medical problems - Surgical History Surgical History: Surgical History (Last Updated 04/11/18 @ 11:28 by ROLLY Lock) History of right inguinal hernia repair - Family History Family History: Family History (Last Updated 04/11/18 @ 11:39 by ROLLY Lock) Father due to natural causes Mother due to natural causes - Tobacco History Second Hand Smoke Exposure: No Tobacco Use In Past 30 Days: No Smoking Status: Former smoker Number of Pack Years (if former smoker): 25 - Alcohol History How Often Do You Have a Drink Containing Alcohol: Never - Substance Use History Substance History: No History of Abuse - Travel History Recent Travel in the [place] Within the Last 8 Weeks: No Recent Travel Out of the Country Within the Last 8 Weeks: No - Immunization History Tetanus Immunization: Unsure Hx Influenza Vaccine This Season: Yes Medications and Allergies Active Medications: Active Medications Sodium Chloride (Ns Inj) 1,000 mls @ 100 mls/hr IV.CONT .Q10H SELAM Last Admin: 04/11/18 01:41 Dose: 100 mls/hr Allergies Allergy/AdvReac Type Severity Reaction Status Date / Time No Known Allergies AdvReac Unknown Abdominal Uncoded 04/10/18 23:54 Pain Home Medications Medication Instructions Recorded Confirmed Type No Known Home Medications 04/10/18 04/10/18 History Exam Vital signs: Vital Signs 04/10/18 22:43 04/10/18 22:49 04/10/18 23:20 Temperature 98.1 F 98.1 F Pulse Rate 76 76 Respiratory Rate 20 Blood Pressure 154/84 H 154/84 H Pulse Oximetry 97 97 97 04/10/18 23:56 04/11/18 00:47 04/11/18 01:20 Temperature 96.6 F L Pulse Rate 66 69 70 Respiratory Rate 16 16 17 Blood Pressure 128/72 150/79 H 165/88 H Pulse Oximetry 96 97 98 04/11/18 01:50 04/11/18 02:00 04/11/18 06:32 Temperature 97.7 F Pulse Rate 62 65 Respiratory Rate 18 Blood Pressure 116/72 Pulse Oximetry 97 96 04/11/18 08:16 Temperature 96.8 F L Pulse Rate 62 Respiratory Rate 20 Blood Pressure 129/74 Pulse Oximetry 97 Intake & Output 04/10/18 04/11/18 04/11/18 18:59 06:59 18:59 Intake Total 500 / 500 Output Total Balance 499 / 499 Weight 80.1 kg Intake: IV 500 / 500 NS Inj 500 ML @ Wide Open IV. 500 / 500 SIG BOLUS ONE Rx#:[id number] Oral 0 / 0 Output: Urine Other: Weight On Admission 79.5 kg Narrative: GENERAL: Well-developed, well-nourished, in no acute distress. alert and orientated HEENT: Head is normocephalic without any lesions or masses noted. Facial features are symmetric. Eyes: Pupils equal round reactive to light. Extraocular muscles are intact. Conjunctivae were clear. Oropharyngeal: Pharynx without any erythema edema. Tongue is midline without deviation. Buccal mucosa is moist without any masses or lesions NECK: Supple without any masses. Trachea midline no deviation. No JVD, no bruits are appreciated CARDIAC: Regular rhythm, regular rate. S1/S2 are heard. No murmurs gallops or rubs. LUNGS: Clear to auscultation bilaterally. No wheeze, rhonchi or rales. No use of accessory muscles on inspiration or expiration. ABDOMEN: Soft, nontender. Nondistended. Bowel sounds heard in all 4 quadrants. No organomegaly or masses. Negative rebound, negative guarding EXTREMITIES: No edema, pulses are equal bilaterally. No cyanosis or clubbing NEUROLOGY: Mood and affect appear appropriate. Cranial nerves II through XII grossly intact. Muscle strength 5/5 in upper and lower extremities bilaterally. Deep tendon reflexes are 2+ in upper and lower extremities bilaterally. Results - Labs CBC & Chem 7: 04/10/18 23:20 04/11/18 06:27 Labs: Laboratory Results - last 24 hr 04/10/18 04/10/18 04/10/18 23:20 23:20 23:20 CBC w Diff Auto diff final WBC 7.4 RBC 4.59 Hgb 14.2 Hct 42.6 MCV 92.8 MCH 30.9 MCHC 33.3 RDW 12.6 Plt Count 271 MPV 7.7 Neut % (Auto) 70.4 H Lymph % (Auto) 19.4 [place] % (Auto) 8.6 H Eos % (Auto) 0.6 Baso % (Auto) 1.0 Neut # (Auto) 5.3 Lymph # (Auto) 1.4 [place] # (Auto) 0.6 Eos # (Auto) 0.0 Baso # (Auto) 0.1 WBC Differential . Differential Comment . PT 10.7 INR 1.1 APTT 26.5 Sodium 141 Potassium 4.0 Chloride 107 Carbon Dioxide 24.6 Anion Gap 9 BUN 26 H Creatinine 1.10 Estimated GFR 66 L Random Glucose 110 H Calcium 8.6 Total Bilirubin 0.3 AST 24 ALT 32 Alkaline Phosphatase 112 Total Creatine Kinase 266 CK-MB (CK-2) 5.3 H Troponin I Less than 0.02 L Total Protein 7.0 Albumin 3.6 04/11/18 04/11/18 06:27 06:27 CBC w Diff WBC RBC Hgb Hct MCV MCH MCHC RDW Plt Count MPV Neut % (Auto) Lymph % (Auto) [place] % (Auto) Eos % (Auto) Baso % (Auto) Neut # (Auto) Lymph # (Auto) [place] # (Auto) Eos # (Auto) Baso # (Auto) WBC Differential Differential Comment PT INR APTT Sodium 143 Potassium 3.9 Chloride 109 H Carbon Dioxide 25.6 Anion Gap 8 BUN 21 H Creatinine 0.99 Estimated GFR 75 L Random Glucose 105 Calcium 8.3 L Total Bilirubin AST ALT Alkaline Phosphatase Total Creatine Kinase CK-MB (CK-2) Troponin I Less than 0.02 L Total Protein Albumin - Imaging Impressions Head CT 04/10/18 23:01 CONCLUSION: 1. No acute intracranial findings identified. 2. Symmetric periventricular white matter hypodensity likely representing chronic small vessel ischemic change. Chest X-Ray 04/10/18 23:02 CONCLUSION: No acute cardiopulmonary disease identified. Carotid Doppler Study 04/11/18 00:00 CONCLUSION: No hemodynamically significant stenosis in either carotid artery Caprini VTE Risk Assessment Caprini VTE Risk Assessment: Moderate/High Risk (score >= 2) Caprini Risk Assessment Model: Point Value = 1 Point Value = 2 Point Value = 3 Point Value = 5 Age 41-60 Minor surgery BMI > 25 kg/m2 Swollen legs Varicose veins or History of unexplained or recurrent spontaneous Oral contraceptives or hormone replacement Sepsis (< 1 month) Serious lung disease, including pneumonia (< 1 month) Abnormal pulmonary function Acute myocardial infarction Congestive heart failure (< 1 month) History of inflammatory bowel disease Medical patient at bed rest Age 61-74 Arthroscopic surgery Major open surgery (> 45 min) Laparoscopic surgery (> 45 min) Malignancy Confined to bed (> 72 hours) Immobilizing plaster cast Central venous access Age >= 75 History of VTE Family history of VTE Factor V Leiden Prothrombin [id number] Lupus anticoagulant Anticardiolipin antibodies Elevated serum homocysteine Heparin-induced thrombocytopenia Other congenital or acquired thrombophilia Stroke (< 1 month) Elective arthroplasty Hip, pelvis, or leg fracture Acute spinal cord injury (< 1 month) Prophylaxis Regimen: Total Risk Factor Score Risk Level Prophylaxis Regimen 0-1 Low Early ambulation 2 Moderate Order ONE of the following: *Sequential Compression Device (SCD) *Heparin 5000 units SQ BID 3-4 Higher Order ONE of the following medications: *Heparin 5000 units SQ TID *Enoxaparin/Lovenox 40 mg SQ daily (WT < 150 kg, CrCl > 30 mL/min) *Enoxaparin/Lovenox 30 mg SQ daily (WT < 150 kg, CrCl > 10-29 mL/min) *Enoxaparin/Lovenox 30 mg SQ BID (WT < 150 kg, CrCl > 30 mL/min) AND/OR *Sequential Compression Device (SCD) 5 or more Highest Order ONE of the following medications: *Heparin 5000 units SQ TID (Preferred with Epidurals) *Enoxaparin/Lovenox 40 mg SQ daily (WT < 150 kg, CrCl > 30 mL/min) *Enoxaparin/Lovenox 30 mg SQ daily (WT < 150 kg, CrCl > 10-29 mL/min) *Enoxaparin/Lovenox 30 mg SQ BID (WT < 150 kg, CrCl > 30 mL/min) AND *Sequential Compression Device (SCD) Assessment and Plan - Assessment (1) Near syncope Code(s): R55 - Syncope and collapse Status: Acute Plan: -Patient indicates that he is feeling much better this morning after IV hydration -Renal functions do indicate some prerenal azotemia, likely some mild dehydration -From what I can interpret from the vital signs it appears that patient may have had some orthostatic vitals in the ER -CT scan of the brain was unremarkable for any acute abnormality -Carotid ultrasound was performed which did not indicate any abnormality -EKG shows sinus rhythm without any arrhythmias, telemetry was reviewed and did not indicate any abnormality -Cardiac enzymes were trended which did not indicate any signs of cardiac injury or acute coronary event -Patient clinically improved at this time, repeat orthostatic vitals were performed which were normal - Plan DVT prevention -Sequential compression devices Discharge Planning: Discharge home in stable condition Activity: Ad sindhu. Diet: Regular diet Medication per medication reconciliation Follow-up with primary medical doctor in 1 week
== END 2018-04-11 14:57 | disposition home or self-care (01) ==
LOC: PHEFT 22:19 → PH3 22:19 → PHEDA 22:19 → PH3 04-11 01:53
PROVIDERS: ADMIT Internal Medicine; ATTEND Internal Medicine